=== PATIENT | male | born 1950 | race Caucasian/White ===

== ENCOUNTER 2017-04-30 12:04 | Inpatient (IN) | payer OTHER ==
[~2017-04-30] VITALS: Ht 175.3 cm; Wt 91.4 kg
[~2017-04-30 12:04] MED LIST: FLOMAX0.4 MG PO; MOTRIN800 MG PO; ULTRAM50 MG PO; VITAMIN D34000 UNIT PO; ZOCOR80 MG PO
[2017-04-30 13:39] LABS: HEMATOCRIT 40.7 % (38.0-50.0); MCHC 32.7 G/DL (30.0-36.0); MCV 88.9 FL (86-99); MEAN PLAT.VOLUME 11.2 uM^3 (9.0-12.4); PLATELET COUNT 142 K/uL (156-360); RBC DIS.WIDTH-CV 14.1 % (11.8-14.6); RBC DIS.WIDTH-SD 45.7 % (39-53); RED BLOOD COUNT 4.58 M/uL (4.00-5.50); WHITE BLOOD COUNT 13.8 K/uL (4.1-10.2)
[2017-04-30 13:48] LABS: CHLORIDE 107 mEq/L (99-109); POTASSIUM 4.1 mEq/L (3.7-5.4); SODIUM 139 mEq/L (136-147)
[2017-04-30 13:49] LABS: GLUCOSE 104 mg/dL (70-99)
[2017-04-30 13:51] LABS: ANION GAP 10 MEQ/L (2-14)
[2017-04-30 13:53] LABS: GFR ESTIMATE (CALCULATED) > 59 mL/min/
[2017-04-30 13:54] LABS: UREA NITROGEN (BUN) 37 mg/dL (9-23)
[2017-04-30 14:45] LABS: TOTAL BILIRUBIN 0.4 mg/dL (0.0-1.0)
[2017-04-30 14:46] LABS: ALKALINE PHOSPHATASE 67 IU/L (3-129)
[2017-04-30 14:48] LABS: DIRECT BILIRUBIN 0.2 mg/dL (0.0-0.3)
[2017-04-30 15:48] LABS: ADD MIUA? NO; BILIRUBIN NEGATIVE; BLOOD NEGATIVE; COLOR YELLOW ((YELLOW)); GLUCOSE (STRIP) NEGATIVE; KETONES NEGATIVE; LEUKOCYTES NEGATIVE; NITRITE NEGATIVE; PROTEIN (STRIP) NEGATIVE; SPECIFIC GRAVITY 1.019 (1.000-1.030); UCUL ADDED? NO; UROBILINOGEN 0.2 MG/DL (0.2-1.0)
[2017-04-30] MEDS ORDERED: NEURONTIN300 MG PO (18:07)
[2017-04-30 18:23] LABS: HEMATOCRIT 37.3 % (38.0-50.0); MCH 29.4 PG (29.0-34.0); MCHC 33.5 G/DL (30.0-36.0); MCV 87.8 FL (86-99); MEAN PLAT.VOLUME 11.2 uM^3 (9.0-12.4); PLATELET COUNT 139 K/uL (156-360); RBC DIS.WIDTH-CV 14.1 % (11.8-14.6); RBC DIS.WIDTH-SD 45.1 % (39-53); RED BLOOD COUNT 4.25 M/uL (4.00-5.50); WHITE BLOOD COUNT 10.5 K/uL (4.1-10.2)
[2017-04-30 19:35] VITALS: BP 113/59
[2017-04-30 23:20] VITALS: BP 105/60
[2017-04-30 23:49] LABS: HEMATOCRIT 30.6 % (38.0-50.0)
[2017-05-01] VITALS (9 sets, daily range): BP systolic 95–121; BP diastolic 60–78
[2017-05-01 06:30] LABS: HEMATOCRIT 31.3 % (38.0-50.0); MCV 90.5 FL (86-99)
[2017-05-01 06:57] LABS: ALKALINE PHOSPHATASE 47 IU/L (3-129); ANION GAP 5 MEQ/L (2-14); CHLORIDE 112 MEQ/L (99-109); GFR ESTIMATE (CALCULATED) > 59 mL/min/; GLUCOSE 84 mg/dL (70-99); POTASSIUM 4.3 MEQ/L (3.7-5.4); SAMPLE HEMOLYSIS CHECK 0; SAMPLE ICTERIC CHECK 0; SAMPLE LIPEMIA CHECK 0; SODIUM 142 MEQ/L (136-147); TOTAL BILIRUBIN 0.4 MG/DL (0.0-1.0); UREA NITROGEN (BUN) 24 mg/dL (9-23)
[2017-05-02 03:05] VITALS: BP 96/53
[2017-05-02 06:26] LABS: HEMATOCRIT 31.3 % (38.0-50.0); MCH 30.4 PG (29.0-34.0); MCHC 33.9 G/DL (30.0-36.0); MCV 89.7 FL (86-99); MEAN PLAT.VOLUME 11.2 uM^3 (9.0-12.4); PLATELET COUNT 128 K/uL (156-360); RBC DIS.WIDTH-CV 14.6 % (11.8-14.6); RBC DIS.WIDTH-SD 47.6 % (39-53); RED BLOOD COUNT 3.49 M/uL (4.00-5.50); WHITE BLOOD COUNT 8.1 K/uL (4.1-10.2)
[2017-05-02 06:51] LABS: ANION GAP 6 MEQ/L (2-14); CHLORIDE 113 MEQ/L (99-109); GFR ESTIMATE (CALCULATED) > 59 mL/min/; GLUCOSE 89 mg/dL (70-99); POTASSIUM 3.9 MEQ/L (3.7-5.4); SAMPLE HEMOLYSIS CHECK 0; SAMPLE ICTERIC CHECK 0; SAMPLE LIPEMIA CHECK 0; SODIUM 143 MEQ/L (136-147); UREA NITROGEN (BUN) 17 mg/dL (9-23)
[2017-05-02 07:26] VITALS: BP 109/69
[2017-05-02] MEDS ORDERED: PANTOPRAZOLE SO40 MG PO (08:19)
[2017-05-02] MEDS ORDERED: FEOSOL325 MG PO (08:19)
== END 2017-05-02 10:56 | disposition home or self-care (01) | DRG 379 ==
LOC: EME 12:04 → EDOF 17:42 → 5EAST 17:42 → ENRESERV 17:43 → CANRESERV 17:43 → ENRESERV 17:50 → 5EAST 19:41 → ENPENDDIS 05-02 → 5EAST 05-02 10:56
PROVIDERS: Hospitalist; Nurse Practitioner Family; Physician Assistant
PROC: 0DJ08ZZ Inspection of Upper Intestinal Tract, Via Natural or Artificial Opening Endoscopic (ICD-10-PCS; principal; 2017-04-30)
DX: K92.2 Gastrointestinal hemorrhage, unspecified (principal); J44.9 Chronic obstructive pulmonary disease, unspecified; E78.5 Hyperlipidemia, unspecified; I71.4 Abdominal aortic aneurysm, without rupture; D72.829 Elevated white blood cell count, unspecified; M19.90 Unspecified osteoarthritis, unspecified site; N40.0 Benign prostatic hyperplasia without lower urinary tract symptoms; F17.210 Nicotine dependence, cigarettes, uncomplicated; Z86.010 Personal history of colon polyps; Z86.79 Personal history of other diseases of the circulatory system; Z82.49 Family history of ischemic heart disease and other diseases of the circulatory system; Z82.3 Family history of stroke
CPT/HCPCS: 74177; 80048; 80053; 80069; 80076; 81003; 85014; 85018; 85027; 86850; 86900; 86901; 93005; 99281; 99285; C9113; J7030